=== PATIENT | male | born 1995 | race Two or more races ===

== ENCOUNTER 2020-03-02 14:47 | Emergency (ER) | payer MEDICAID ==
[~2020-03-02] VITALS: Ht 190.5 cm; Wt 75.0 kg
[2020-03-02 14:57] VITALS: BP 119/66
== END 2020-03-02 17:55 | disposition left against medical advice (07) ==
LOC: EMS 14:49
DX: S05.31XA Ocular laceration without prolapse or loss of intraocular tissue, right eye, initial encounter (principal); Z53.21 Procedure and treatment not carried out due to patient leaving prior to being seen by health care provider; W45.8XXA Other foreign body or object entering through skin, initial encounter; Y93.89 Activity, other specified; Y92.89 Other specified places as the place of occurrence of the external cause; Y99.8 Other external cause status

== ENCOUNTER 2020-03-02 20:01 | Emergency (ER) | payer MEDICAID ==
[~2020-03-02] VITALS: Ht 190.5 cm; Wt 75.0 kg
[2020-03-02 20:32] VITALS: BP 117/73
== END 2020-03-02 20:34 | disposition home or self-care (01) ==
LOC: EMS 20:04
DX: S01.411A Laceration without foreign body of right cheek and temporomandibular area, initial encounter (principal); W22.8XXA Striking against or struck by other objects, initial encounter; Y93.89 Activity, other specified; Y92.89 Other specified places as the place of occurrence of the external cause; Y99.8 Other external cause status
CPT/HCPCS: 12011; Z7502